=== PATIENT | female | born 1985 | race Caucasian/White ===

== ENCOUNTER → 2021-11-15 01:46 | Outpatient (CLI) | payer OTHER, SELFPAY ==
--- NOTE | 2021-11-15 | DI.RAD_ITS ---
Exam(s) XR SACRUM COCCYX XR LUMBAR SPINE AP, LAT EXAM: XR LUMBAR SPINE AP, LAT CLINICAL HISTORY: ARTHRITIS, M13.80 TECHNIQUE: COMPARISON: CR XR SACRUM COCCYX from 11/15/2021 FINDINGS: Three views of the lumbosacral spine and 3 additional views of the sacrum and coccyx were obtained. Note is made of an IUD in the pelvic midline. There appear to be minimal sclerotic changes bilaterally involving the SI joints, probably only the i liac bones, this is indeterminate for sacroiliitis, if clinically indicated additional evaluation wit h MRI may be obtained to assess for sacroiliitis. There is disc space loss of height at L4-5 and L5-S1 vacuum disc phenomenon consistent with disc dege neration. Otherwise intervertebral disc spaces are fairly well maintained. Mild hypertrophic endpla te changes are noted at L4 and L5. There may be a minimal retrolisthesis of L5 on S1. There is no s pondylolysis seen on these images. No evidence of compression fracture. IMPRESSION: Disc degeneration at L4-5 and L5-S1. Additionally, there is some possibility of sacroiliitis, additi onal evaluation with MRI of the SI joints may be obtained if clinically indicated. RADIATION DOSE DELIVERED: Total DLP
== END ==
PROVIDERS: Visit Provider Chiropractor
DX: M51.36 Other intervertebral disc degeneration, lumbar region (principal)
CPT/HCPCS: 72100; 72220

== ENCOUNTER 2022-04-15 16:18 | Outpatient (REF) | payer OTHER, SELFPAY | END 2022-04-15 16:19 | disposition home or self-care (01) | LOC: LBN 16:18 | PROVIDERS: Visit Provider Obstetrics & Gynecology | DX: N89.8 Other specified noninflammatory disorders of vagina (principal) | CPT/HCPCS: 87480; 87510; 87660 ==